=== PATIENT | male | born 1950 | race Caucasian/White ===

== ENCOUNTER 2018-08-21 09:06 | Emergency (ER) | payer MEDICARE, OTHER, SELFPAY ==
[2018-08-21 09:14] VITALS: BP 160/75; PULSE 87; RESP 15; TEMP 36.9; O2SAT 97; BMI 27.9
--- NOTE | 2018-08-21 09:55 | ED.GIBLEED ---
HPI - GI Bleed General Chief complaint: GI Bleed Stated complaint: BLEEDING AFTER COLONOSCOPY Time Seen by Provider: 08/21/18 09:10 Source: patient Mode of arrival: ambulatory Limitations: no limitations History of Present Illness HPI Narrative: 68-year-old male, nonsmoker with history of hypertension and GERD presents with some mild rectal bleeding this morning in the absence pain or other symptoms. He had a bowel movement this morning and noted a very small amount what looked like clotted blood and on a subsequent bowel movement noted the toilet water became red but not obviously, completely bloody. He denies any pain and is not dizzy nor weak or lightheaded. He had a colonoscopy with GI at [facility] on Saturday and had a polyp removed, pathology noted it to be benign. He takes no blood thinners. He called the GI office and was directed to the emergency department Onset (ago): hour(s) Pain Consistency: now resolved Severity: mild Relieving factors: none Exacerbating factors: none Associated symptoms: denies other symptoms Related Data Home Medications Medication Instructions Recorded Confirmed atorvastatin [Lipitor] 40 mg PO BEDTIME 08/21/18 08/21/18 hydrochlorothiazide 25 mg PO DAILY 08/21/18 08/21/18 lisinopril 40 mg PO DAILY 08/21/18 08/21/18 ranitidine HCl [Zantac] 150 mg PO DAILY 08/21/18 08/21/18 Allergies Allergy/AdvReac Type Severity Reaction Status Date / Time morphine Allergy Verified 08/21/18 09:14 Review of Systems Constitutional Denies chills, Denies fever(s), Denies lethargy and Denies weakness Eyes Denies change in vision, Denies eye discharge, Denies irritation and Denies loss of vision ENT Ears, Nose, Mouth, and Throat: Denies change in voice, Denies neck pain and Denies sore throat Cardiovascular Denies chest pain, Denies irregular heart rhythm, Denies lightheadedness, Denies palpitations, Denies dyspnea, Denies dyspnea on exertion and Denies orthopnea Respiratory Denies cough, Denies dyspnea, Denies dyspnea on exertion and Denies wheezing Gastrointestinal Gastrointestinal: Denies abdominal pain, Reports hematochezia, Denies change in bowel habits, Denies diarrhea, Denies nausea and Denies vomiting Genitourinary Denies hematuria, Denies flank pain, Denies urinary incontinence and Denies urinary urgency Musculoskeletal Denies neck pain Integumentary/Breasts Denies pruritus, Denies erythema, Denies rash and Denies wounds Neurologic Denies confusion, Denies loss of vision and Denies weakness Psychiatric Denies anxiety, Denies confusion, Denies depression, Denies homicidal ideation and Denies suicidal ideation Endocrine Denies palpitations Hematologic/Lymphatic Denies easy bruising Allergic/Immunologic Denies wheezing PFSH Surgical History History of carpal tunnel repair History of tonsillectomy Status post hernia repair Status post hernia repair Status post knee surgery Family History Brother Age: 75 Cancer Brother Age: 66 Kidney transplanted Father Heart disease Grandfather Peritonitis Grandmother Stroke Mother Stroke Social History Smoking Status: Former smoker Exam Narrative Exam Narrative: GEN: AOx3 and in mild distress EYES: Pupils are equal, round, and reactive to light and accommodation. Extraoccular muscles are intact bilaterally. There is no subconjunctival hemorrhage or exudate. CHEST: Lungs are clear to auscultation bilaterally and free of wheezes, rales, or rhonchi. Heart rate is regular rhythm, there are no murmurs, clicks, rubs, or gallops. There is no chest wall tenderness. ABD: Abdomen is soft and nontender. There is no guarding or rebound. Bowel sounds are normal in all 4 quadrants. There is no mass or organomegaly. RECTAL: no bleeding. No fissure. External hemorrhoid not bleeding. No pain EXT: Full painless ROM of all extremities with no loss of sensation or strength. SKIN: Warm, pink, and dry. No erythema or rash Initial Vital Signs Initial Vital Signs: Vital Signs Temperature 98.5 F 08/21/18 09:14 Pulse Rate 87 08/21/18 09:14 Respiratory Rate 15 08/21/18 09:14 Blood Pressure 160/75 H 08/21/18 09:14 Pulse Oximetry 97 08/21/18 09:14 Course Orders Ordered: ED Orders 08/21/18 10:55 Hemoglobin and Hematocrit Stat Consultations Consultation #1: call placed to Dr. Dunn, he is not in the office but his partner called back. His only recommendation is to obtain H&H and provided that is normal patient may go home after our discussion of patient's history and exam. Time: 09:58 Vital Signs - 8 hr 08/21/18 11:35 Pulse Rate 80 Respiratory Rate 15 Blood Pressure [Right Arm] 143/68 H Pulse Oximetry 96 MDM - GI Bleed Differential Diagnosis Likely hemorrhoids, Lower gastrointestinal hemorrhage, hematochezia and anal fissure Medical Records Attestation: I reviewed the patient's medical records. Lab Data Attestation: I reviewed the patient's lab results. Result diagrams: 08/21/18 10:55 Lab Results 08/21/18 Range/Units 10:55 Hgb 13.9 (13.5-17.5) g/dL Hct 40.8 L (41-53) % MDM Narrative Medical decision making narrative: Multiple etiologies for patient's symptoms considered including: [Surgical complication, diverticular bleed, perforation, hemorrhoidal bleed, versus other] Patient's symptoms improved or duration of stay with above-stated therapies. Findings and discharge diagnosis discussed with patient/family followed by verbalization of understanding Return precautions discussed with patient/family whom verbalize understanding. Discharge Plan Departure Patient Disposition: Home Clinical Impression: Rectal bleed Discharge Date/Time: 08/21/18 12:02 Interventions: ED Discharge Assessment Last Done: 08/21/18 12:02 Instructions: DI for Rectal Bleeding Activity Restrictions/Additional Instructions: 1. Drink plenty of fluids with frequent small sips. 2. For the next 24 hours a clear liquid diet is advised. After that please employ a brat diet which would include bananas, rice, apples, toast. 3. Please take medications as directed. 4. Please follow-up with your doctor in the next 1-2 days. Call the office for an appointment. 5. Please return to the emergency Department for any worsening or persistent symptoms, such as increasing pain or fever. Prescriptions: No Action atorvastatin [Lipitor] 40 mg tablet 40 mg PO BEDTIME RF: 0 hydrochlorothiazide 25 mg tablet 25 mg PO DAILY RF: 0 lisinopril 40 mg tablet 40 mg PO DAILY RF: 0 ranitidine HCl [Zantac] 150 mg Tablet 150 mg PO DAILY RF: 0 Referrals: Severo Wahl MD [Primary Care Provider] -
[2018-08-21 11:04] LABS: Hematocrit 40.8 % (41-53); Hemoglobin 13.9 g/dL (13.5-17.5)
[2018-08-21 11:35] VITALS: BP 143/68; PULSE 80; RESP 15; O2SAT 96
== END 2018-08-21 12:02 | disposition home or self-care (01) ==
PROVIDERS: Emergency Provider Emergency Medicine; PCP Family Medicine
DX: K62.5 Hemorrhage of anus and rectum (principal)
CPT/HCPCS: 36415; 85014; 85018; 99282; 99283

== ENCOUNTER → 2018-08-27 09:02 | Outpatient (CLI) | payer MEDICARE, OTHER, SELFPAY ==
[2018-08-27 09:55] LABS: Hematocrit 36.5 % (41-53); Hemoglobin 12.9 g/dL (13.5-17.5)
== END ==
PROVIDERS: PCP Family Medicine; Visit Provider Family Medicine
DX: K62.5 Hemorrhage of anus and rectum (principal)
CPT/HCPCS: 36415; 85014; 85018

== ENCOUNTER → 2019-01-06 06:59 | Outpatient (CLI) | payer MEDICARE, OTHER, SELFPAY ==
[2019-01-06 08:11] LABS: Add Manual Diff / Slide Review NO; Basophils Absolute Auto 0 /uL (0-100); Basophils Percent Auto 0.6 % (0-2); Eosinophils Absolute Auto 100 /uL (0-450); Hematocrit 41.5 % (41-53); Lymphocytes Absolute Auto 1300 /uL (1100-4500); Lymphocytes Percent Auto 23.3 % (25-40); Mean Corpuscular HGB Conc 33.7 % (30-36); Mean Corpuscular Hemoglobin 30.8 PG (26-34); Mean Corpuscular Volume 91.4 fL (80-100); Monocytes Absolute Auto 600 /uL (0-900); Monocytes Percent Auto 11.3 % (3-14); Neutrophils Absolute Auto 3500 /uL (1500-7000); Neutrophils Percent Auto 62.8 % (50-75); Platelet Count 275 X10^3/uL (150-400); Red Blood Cell Count 4.54 X10^6/uL (4.5-5.9); Red Cell Distribution Width 13.2 % (11.6-14.8); White Blood Cell Count 5.7 X10^3/uL (4.5-11.0)
[2019-01-06 08:57] LABS: Alanine Aminotransferase 26 IU/L (21-72); Albumin 4.6 g/dL (3.5-5.0); Albumin Globulin Ratio 1.6 (1.0-2.8); Alkaline Phosphatase 76 U/L (38-126); Aspartate Aminotransferase 30 IU/L (17-59); BUN Creatinine Ratio 18.2 (6-22); Bilirubin Total 0.6 mg/dL (0.2-1.3); Blood Urea Nitrogen 20 mg/dL (9-20); Calcium 9.9 mg/dL (8.4-10.2); Carbon Dioxide 25 mmol/L (22-32); Chloride 102 mmol/L (98-107); Cholesterol 185 mg/dL (140-199); Estimated Glomerular Filt Rate > 60.0 mL/min (>60); Globulin 2.8 g/dL (1.7-4.1); Glucose 121 mg/dL (80-110); HDL Cholesterol 64 mg/dL (40-60); HEMOLYSIS < 15 (0-50); LDL Cholesterol Calculated 110 mg/dL (<100); Potassium 4.4 mmol/L (3.4-5.1); Sodium 138 mmol/L (137-145); Total Protein 7.4 g/dL (6.3-8.2); Triglycerides 55 mg/dL (35-150)
[2019-01-06 09:00] LABS: TSH w/ Reflex to FT4 1.37 uIU/mL (0.47-4.68)
[2019-01-06 09:06] LABS: Prostate Specific Antigen Scrn 1.92 ng/mL (0.1-4.0)
[2019-01-06 15:38] LABS: Hemoglobin A1C% w Est Avg Glu 5.5 % (4.0-6.0)
== END ==
PROVIDERS: PCP Family Medicine; Visit Provider Family Medicine
DX: Z12.5 Encounter for screening for malignant neoplasm of prostate (principal); E78.00 Pure hypercholesterolemia, unspecified; I10 Essential (primary) hypertension; R73.9 Hyperglycemia, unspecified
CPT/HCPCS: 36415; 80053; 80061; 83036; 84443; 85025; G0103

== ENCOUNTER → 2019-05-25 08:01 | Outpatient (CLI) | payer MEDICARE, OTHER, SELFPAY ==
--- NOTE | 2019-05-25 08:05 | DI.RAD.S_ITS ---
PROCEDURE: XR SHOULDER LT MIN 2V INDICATIONS: left shoulder pain TECHNIQUE: 4 views of the shoulder were acquired. COMPARISON: None. FINDINGS: Bones: No acute fractures or dislocations. There are degenerative changes of the left acromioclavicular joint. Coracoclavicular and acromioclavicular intervals are maintained. No suspicious bony lesions. Visualized ribs appear intact. Soft tissues: No suspicious soft tissue calcifications. IMPRESSION: Left acromioclavicular degenerative change. No acute osseous abnormalities. Dictated by: Dylan Umaña M.D. on 05/25/2019 at 9:09 Approved by: Dylan Umaña M.D. on 05/25/2019 at 9:10
== END ==
PROVIDERS: PCP Family Medicine; Visit Provider Family Medicine
DX: M25.512 Pain in left shoulder (principal)
CPT/HCPCS: 73030

== ENCOUNTER → 2020-07-08 08:51 | Outpatient (CLI) | payer MEDICARE, SELFPAY ==
--- NOTE | 2020-07-08 08:56 | DI.RAD.S_ITS ---
PROCEDURE: XR CHEST 2V INDICATIONS: cough TECHNIQUE: 2 views of the chest were acquired. COMPARISON: None. FINDINGS: Surgical changes and devices: None. Lungs and pleura: Lungs are clear. No pleural effusions or pneumothorax. Mediastinum: Mediastinal contours are normal. Heart size is normal. Bones and chest wall: No suspicious bony abnormalities. Soft tissues appear unremarkable. IMPRESSION: No acute cardiopulmonary disease. Dictated by: Julian Borges M.D. on 07/08/2020 at 13:22 Approved by: Julian Borges M.D. on 07/08/2020 at 13:22
[2020-07-08 10:03] LABS: Add Manual Diff / Slide Review NO; Basophils Absolute Auto 0 /uL (0-100); Basophils Percent Auto 0.5 % (0-2); Eosinophils Absolute Auto 100 /uL (0-450); Hematocrit 41.5 % (41-53); Hemoglobin 14.1 g/dL (13.5-17.5); Lymphocytes Absolute Auto 1100 /uL (1100-4500); Lymphocytes Percent Auto 17.7 % (25-40); Mean Corpuscular HGB Conc 33.9 % (30-36); Mean Corpuscular Hemoglobin 31.7 PG (26-34); Mean Corpuscular Volume 93.4 fL (80-100); Monocytes Absolute Auto 700 /uL (0-900); Monocytes Percent Auto 11.9 % (3-14); Neutrophils Absolute Auto 4300 /uL (1500-7000); Neutrophils Percent Auto 68.9 % (50-75); Platelet Count 236 X10^3/uL (150-400); Red Blood Cell Count 4.45 X10^6/uL (4.5-5.9); White Blood Cell Count 6.3 X10^3/uL (4.5-11.0)
[2020-07-08 10:30] LABS: Alanine Aminotransferase 25 IU/L (<50); Albumin 4.7 g/dL (3.5-5.0); Albumin Globulin Ratio 1.4 (1.0-2.8); Alkaline Phosphatase 65 U/L (38-126); Aspartate Aminotransferase 29 IU/L (17-59); BUN Creatinine Ratio 19.8 (6-22); Bilirubin Total 0.8 mg/dL (0.2-1.3); Blood Urea Nitrogen 23 mg/dL (9-20); Carbon Dioxide 27 mmol/L (22-32); Chloride 100 mmol/L (98-107); Cholesterol 203 mg/dL (140-199); Estimated Glomerular Filt Rate > 60.0 mL/min (>60); Globulin 3.4 g/dL (1.7-4.1); Glucose 119 mg/dL (80-110); HDL Cholesterol 68 mg/dL (40-60); HEMOLYSIS < 15 (0-50); LDL Cholesterol Calculated 117 mg/dL (<100); Potassium 4.3 mmol/L (3.4-5.1); Sodium 134 mmol/L (137-145); Total Protein 8.1 g/dL (6.3-8.2); Triglycerides 90 mg/dL (35-150)
== END ==
PROVIDERS: PCP Family Medicine; Referring Provider Family Medicine; Visit Provider Family Medicine
DX: E78.00 Pure hypercholesterolemia, unspecified (principal); I10 Essential (primary) hypertension; K21.9 Gastro-esophageal reflux disease without esophagitis; R05 Cough
CPT/HCPCS: 36415; 71046; 80053; 80061; 84443; 85025

== ENCOUNTER → 2020-08-30 07:45 | Outpatient (CLI) | payer MEDICARE, SELFPAY ==
[2020-08-30] MEDS: COVID-19 VACC #1, MRNA(MOD) 100 MCG/0.5 ML VIAL IM (07:51)
== END ==
PROVIDERS: PCP Family Medicine; Visit Provider Internal Medicine
DX: Z23 Encounter for immunization (principal)
CPT/HCPCS: 0011A; 91301

== ENCOUNTER → 2020-09-27 07:53 | Outpatient (CLI) | payer MEDICARE, SELFPAY ==
[2020-09-27] MEDS: COVID-19 VACC #2, MRNA(MOD) 100 MCG/0.5 ML VIAL IM (08:11)
== END ==
PROVIDERS: PCP Family Medicine; Visit Provider Internal Medicine
DX: Z23 Encounter for immunization (principal)
CPT/HCPCS: 0012A; 91301

== ENCOUNTER → 2021-07-05 07:18 | Outpatient (CLI) | payer MEDICARE, SELFPAY ==
--- NOTE | 2021-07-05 07:21 | DI.RAD.S_ITS ---
PROCEDURE: XR FOOT LT MIN 3V INDICATIONS: L heel pain, s/p injury 1 mo ago TECHNIQUE: 3 views of the foot were acquired. COMPARISON: None. FINDINGS: Bones: There is a small plantar calcaneal enthesophyte that appears to be fractured at its base. Mild overlying soft tissue swelling. Small retrocalcaneal enthesophyte. Remainder of the visualized osseous structures appear intact. Mild background degenerative changes of the interphalangeal joints of the left foot as well as the 1st metatarsophalangeal joint. Soft tissues: No tibiotalar joint effusion. Achilles tendon appears normal. IMPRESSION: Small plantar calcaneal enthesophyte at appears to be fracture at its base. Recommend correlating with physical examination for point tenderness in this region. Otherwise, no other fracture or dislocation identified. Dictated by: Dylan Umaña M.D. on 07/05/2021 at 7:35 Approved by: Dylan Umaña M.D. on 07/05/2021 at 7:38
== END ==
PROVIDERS: PCP Family Medicine; Referring Provider Physician Assistant; Visit Provider Physician Assistant
DX: M79.672 Pain in left foot (principal); M77.32 Calcaneal spur, left foot; M79.89 Other specified soft tissue disorders
CPT/HCPCS: 73630

== ENCOUNTER → 2021-10-13 10:18 | Outpatient (CLI) | payer MEDICARE, SELFPAY ==
[2021-10-13 19:00] LABS: COVID-19 CEPHEID PCR (VTM/NP) Negative (Negative)
== END ==
PROVIDERS: PCP Family Medicine; Visit Provider Nurse Practitioner Family
DX: Z20.822 Contact with and (suspected) exposure to COVID-19 (principal)
CPT/HCPCS: C9803; U0003; U0005

== ENCOUNTER → 2022-02-15 06:49 | Outpatient (CLI) | payer MEDICARE, SELFPAY ==
[2022-02-15 09:01] LABS: Add Manual Diff / Slide Review NO; Basophils Absolute Auto 0 /uL (0-100); Basophils Percent Auto 0.8 % (0-2); Eosinophils Absolute Auto 100 /uL (0-450); Eosinophils Percent Auto 2.8 % (2-4); Hematocrit 40.8 % (41-53); Hemoglobin 14.2 g/dL (13.5-17.5); Lymphocytes Absolute Auto 1000 /uL (1100-4500); Lymphocytes Percent Auto 22.2 % (25-40); Mean Corpuscular HGB Conc 34.7 % (30-36); Mean Corpuscular Volume 92.3 fL (80-100); Monocytes Absolute Auto 600 /uL (0-900); Monocytes Percent Auto 12.8 % (3-14); Neutrophils Absolute Auto 2800 /uL (1500-7000); Neutrophils Percent Auto 61.4 % (50-75); Platelet Count 212 X10^3/uL (150-400); Red Blood Cell Count 4.42 X10^6/uL (4.5-5.9); Red Cell Distribution Width 12.9 % (11.6-14.8); White Blood Cell Count 4.5 X10^3/uL (4.5-11.0)
[2022-02-15 09:35] LABS: Alanine Aminotransferase 19 IU/L (<50); Albumin Globulin Ratio 1.7 (1.0-2.8); Alkaline Phosphatase 77 U/L (38-126); Aspartate Aminotransferase 32 IU/L (17-59); BUN Creatinine Ratio 15.4 (6-22); Bilirubin Total 0.7 mg/dL (0.2-1.3); Blood Urea Nitrogen 16 mg/dL (9-20); Calcium 9.2 mg/dL (8.4-10.2); Carbon Dioxide 26 mmol/L (22-32); Chloride 98 mmol/L (98-107); Cholesterol 206 mg/dL (140-199); Estimated Glomerular Filt Rate > 60 mL/min (>60); Globulin 2.9 g/dL (1.7-4.1); Glucose 114 mg/dL (80-110); HDL Cholesterol 65 mg/dL (40-60); HEMOLYSIS < 15 (0-50); LDL Cholesterol Calculated 119 mg/dL (<100); Potassium 4.2 mmol/L (3.4-5.1); Sodium 133 mmol/L (137-145); Total Protein 7.9 g/dL (6.3-8.2); Triglycerides 111 mg/dL (35-150)
[2022-02-15 10:01] LABS: Prostate Specific Antigen Scrn 1.75 ng/mL (0.1-4.0)
[2022-02-15 10:05] LABS: TSH w/ Reflex to FT4 1.86 uIU/mL (0.47-4.68)
== END ==
PROVIDERS: PCP Family Medicine; Referring Provider Family Medicine; Visit Provider Family Medicine
DX: E78.00 Pure hypercholesterolemia, unspecified (principal); Z12.5 Encounter for screening for malignant neoplasm of prostate; I10 Essential (primary) hypertension; E78.1 Pure hyperglyceridemia
CPT/HCPCS: 36415; 80053; 80061; 84443; 85025; G0103

== ENCOUNTER 2022-03-30 12:29 | Emergency (ER) | payer MEDICARE, SELFPAY ==
[2022-03-30 12:50] VITALS: BP 187/86; PULSE 73; RESP 18; TEMP 36.3; O2SAT 97; BMI 27.1
[2022-03-30 13:13] VITALS: O2SAT 100
[2022-03-30 13:14] VITALS: BP 173/93; PULSE 84; O2SAT 97
--- NOTE | 2022-03-30 13:17 | PC.NURSE ---
Pt reports worsening, pulsing, back pain that radiates to his left knee that began after lifting a box of tiles on 03/11/22. Reports a history of 3 back surgeries with his most recent one in November; Pt reports an L2-L3 laminectomy.
--- NOTE | 2022-03-30 15:19 | ED_ITS ---
HPI - Back Pain/Injury <Garland Curtis PA-C - Last Filed: 03/30/22 15:41> General Chief Complaint: Back Pain/Injury Stated Complaint: Hurt Back, Lower Back Time Seen by Provider: 03/30/22 12:42 History of Present Illness HPI Narrative: Patient is a 71-year-old male presents to the emergency room today with complaint chronic back pain. Patient states the pain started about of this month. Has been seeing and last saw him and of this month where he received a steroid injection. Also admits to having back surgery in November of this year. Surgery was a laminectomy to the L2-L3. Has been taken nonsteroidal anti-inflammatories and some hydrocodone that he had left over for his pain. Has an appointment scheduled with his surgeon on April 05. Describes the pain as a dull ache to the lower mid back that radiates to the left side in the sciatic region. Denies any recent trauma. Denies any loss of bowel bladder function. Related Data Home Medications Medication Instructions Recorded Confirmed famotidine-Ca carb-mag hydrox 10 1 tab PO BEDTIME PRN 05/06/19 03/15/22 mg-800 mg-165 mg chewable tablet (Pepcid Complete) Previous Rx's Medication Instructions Recorded lisinopril 40 mg tablet 40 mg PO DAILY #90 tabs 08/07/21 atorvastatin 40 mg tablet 40 mg PO BEDTIME #90 tabs 02/08/22 hydrochlorothiazide 25 mg tablet 25 mg PO DAILY #90 tabs 02/08/22 montelukast 10 mg tablet 10 mg PO DAILY #90 tabs 02/08/22 (Singulair) methocarbamol 750 mg tablet 750 mg PO TID #10 tabs 03/30/22 Allergies Allergy/AdvReac Type Severity Reaction Status Date / Time morphine Allergy Verified 03/15/22 10:57 Review of Systems <Garland Curtis PA-C - Last Filed: 03/30/22 15:41> Review of Systems Narrative: R.O.S.: General: No fever, chills or fatigue. Cardiovascular: No chest pain or palpitations Respiratory: No S.O.B. HEENT: No congestion, ear pain, rhinorrhea, sore throat or tinnitus Gastrointestinal: No nausea or vomiting Skin: No rash or associated abnormalities Neurological: Awake, alert and in not apparent distress. No Headaches, changes in vision or other related neurological concerns. Musculoskeletal: Low back pain Patient History <Garland Curtis PA-C - Last Filed: 03/30/22 15:41> Surgical History History of carpal tunnel repair History of tonsillectomy Status post hernia repair Status post hernia repair Status post knee surgery Family History Brother Age: 79 Cancer Brother Age: 70 Kidney transplanted Father Heart disease Grandfather Peritonitis Grandmother Stroke Mother Stroke Social History marital status: Smoking Status: Former smoker alcohol intake: current substance use type: does not use Smoking Status: Former smoker Exam <Garland Curtis PA-C - Last Filed: 03/30/22 15:41> Narrative Exam Narrative: Physical Exam: ? General: normal appearance, well developed, well nourished, alert, and awake. Not in acute distress. ? Head: Normocephalic, no lesions. Chest: Lungs CTAB, no rales, rhonchi or wheezes. ?? Heart: RRR, no murmurs, rubs or gallops. Eyes: PERRLA, EOM's full, conjunctivae clear. ? Neuro: Physiological, no localizing findings, CN3-12 intact. ?? Extremities: Warm, well perfused, FROM, no deformities, no edema. ?? Skin: Normal, no rashes, no lesions noted. ?? PSYCHIATRIC: The mood is good, no blunted affect. Speech is clear. Thought process is linear, thought content is appropriate. The voice is without si gnificant inflection. Musculoskeletal: Patient has bilateral paraspinal tenderness at the lower lumbar spinal area. Patient able to tandem walk without difficulty. Also able to tiptoe walk and heel walk without difficulty. Exam is negative for straight leg raises bilaterally. Initial Vital Signs Initial Vital Signs: Vital Signs Temperature 97.3 F L 03/30/22 12:50 Pulse Rate 73 03/30/22 12:50 Respiratory Rate 18 03/30/22 12:50 Blood Pressure 187/86 H 03/30/22 12:50 Pulse Oximetry 97 03/30/22 12:50 Oxygen Delivery Method 03/30/22 12:50 <DO Judith Pedro Last Filed: 03/31/22 08:53> Initial Vital Signs Initial Vital Signs: Vital Signs Temperature 97.3 F L 03/30/22 12:50 Pulse Rate 73 03/30/22 12:50 Respiratory Rate 18 03/30/22 12:50 Blood Pressure 187/86 H 03/30/22 12:50 Pulse Oximetry 97 03/30/22 12:50 Oxygen Delivery Method 03/30/22 12:50 Course <Garland Curtis PA-C - Last Filed: 03/30/22 15:41> Orders Ordered: Discontinued Medications Ketorolac Tromethamine (Ketorolac 30 Mg/Ml Vial) 15 mg IM NOW ONE Stop: 03/30/22 15:20 Last Admin: 03/30/22 15:26 Dose: 15 mg Documented By: CALVIN Vital Signs Vital signs: Vital Signs - 8 hr 03/30/22 13:13 03/30/22 13:14 03/30/22 13:14 Pulse Rate 84 Blood Pressure 173/93 H Pulse Oximetry 100 97 <Ansley Friedman DO - Last Filed: 03/31/22 08:53> Orders Ordered: Discontinued Medications Ketorolac Tromethamine (Ketorolac 30 Mg/Ml Vial) 15 mg IM NOW ONE Stop: 03/30/22 15:20 Last Admin: 03/30/22 15:26 Dose: 15 mg Documented By: CALVIN Vital Signs Vital signs: Vital Signs - 8 hr 03/30/22 13:13 03/30/22 13:14 03/30/22 13:14 Pulse Rate 84 Blood Pressure 173/93 H Pulse Oximetry 100 97 MDM - Back Pain/Injury <Garland Curtis PA-C - Last Filed: 03/30/22 15:41> MDM Narrative Medical decision making narrative: Patient is a 71-year-old male who presents to the emergency room today with complaint of chronic back pain. Patient states he has this back pain started on the 8th of this month. Also admits to having surgery to his back in November of this year. Patient states he contacted his PCPs office in regards to his back pain and was referred to the emergency room by the nurse in his PCPs office. Scheduled to see his surgeon on April 05 and his only concern today is with pain. Patient states he has not taken any nonsteroidal anti-inflammatories in the last 8 hours. Patient also denies any kidney function concerns. 50 mg of IM Toradol was administered at this visit Robaxin at 750 mg was ordered 3 times a day and 10 Tabs were ordered. No diagnostic for x-rays or CTs were ordered this visit because patient has no complaint of any trauma or changes in his condition other than chronic low back pain. Patient advised to follow-up with his PCP for any known urgent emergent concerns and advised to return to the emergency room or urgent care for any emergent or urgent concerns. Patient agrees with this plan Discharge Plan Departure Patient Disposition: Home Clinical Impression: Chronic low back pain Instructions: DI for Low Back Pain Activity Restrictions/Additional Instructions: *You have been diagnosed with [chronic low back pain. You have been given a strong nostrils steroid injection medicine in the emergency room today I suggest to refrain drain from taking any OTC so anti-inflammatories for the next 8 hours. I have also ordered a muscle relaxer for you which has been sent to your pharmacy. Please take the medications as ordered follow-up with your primary care provider for any non urgent emergent concerns. Also suggest you continue to follow-up with your appointment with your surgeon in regards to chronic back pain. Also please return to the emergency room procedure have any emergent concerns.] *What to do: *Please continue to take your regular medications as directed. [x] New medication prescriptions sent to your pharmacy: [ ] [ ] New medication written as a paper prescription [ ] No new medications given *Please follow up with your primary care provider in 2-3 days, call for an appointment. Let them know you were seen in the Emergency Department and that we ask that you be seen in follow up. We will electronically transmit a record of today's note if your PCP is in our system *If you do not have a primary care provider please contact the [facility] Resource line at [phone]. They will ask some questions about your medical history and help get you set up with a doctor in the community. *Return to Emergency Department if you should have any new, worsening or concerning symptoms, such as [fever greater than 101 F, shaking chills, worsen ing pain, persistent vomiting or other bothersome symptoms] Prescriptions: New methocarbamol 750 mg tablet 750 mg PO TID Qty: 10 0RF No Action montelukast [Singulair] 10 mg tablet 10 mg PO DAILY Qty: 90 3RF hydrochlorothiazide 25 mg tablet 25 mg PO DAILY Qty: 90 3RF atorvastatin 40 mg tablet 40 mg PO BEDTIME Qty: 90 3RF Pepcid Complete 10-800-165 mg tablet,chewable 1 tab PO BEDTIME PRN lisinopril 40 mg tablet 40 mg PO DAILY Qty: 90 3RF Referrals: Severo Wahl MD [Primary Care Provider] - Visit Report Forms: Patient Portal/API <Ansley Friedman DO - Last Filed: 03/31/22 08:53> Cosign ED Attending Angelaature Attestation: I was immediately available in the department for consultation. Documentation has been reviewed. Patient case was discussed with myself. Reviewed no acute neurologic changes, no fevers or changes concerning for infection at this time. Agree with current plan.
[2022-03-30] MEDS: KETOROLAC 30 MG/ML VIAL 15 MG IM (15:26)
[2022-03-30 15:54] VITALS: BP 179/87; PULSE 72; RESP 16; O2SAT 99
== END 2022-03-30 15:54 | disposition home or self-care (01) ==
PROVIDERS: Emergency Provider Physician Assistant; PCP Family Medicine
DX: M54.50 Low back pain, unspecified (principal)
CPT/HCPCS: 96372; 99283; J1885

== ENCOUNTER → 2022-04-02 15:45 | Outpatient (CLI) | payer MEDICARE, SELFPAY ==
--- NOTE | 2022-04-02 15:47 | DI.RAD.S_ITS ---
PROCEDURE: XR LUMBAR SPINE 2-3V INDICATIONS: back pain TECHNIQUE: 3 views of the lumbar spine were acquired. COMPARISON: [facility], , L-SPINE 6V INCLUDING BENDING, 08/06/2012, 13:12. FINDINGS: Bones: 5 [id number] vertebrae are present. There is normal bony alignment. No vertebral body compression fractures. No suspicious bony lesions. There is diffuse intervertebral disc space narrowing, endplate sclerosis, osteophytosis and facet sclerosis. Soft tissues: Overlying bowel gas pattern is normal there is increased atheromatous calcifications of the aorta when compared with the 2013 study. IMPRESSION: Moderate degenerative change. Increased aortic atherosclerosis when compared with the study dated August 06, 2012. No new compression deformities. Dictated by: Mindi Nino M.D. on 04/02/2022 at 17:42 Approved by: Mindi Nino M.D. on 04/02/2022 at 17:44
--- NOTE | 2022-04-02 15:47 | DI.RAD.S_ITS ---
PROCEDURE: XR HIP W PEL IF DONE LT 2V INDICATIONS: hip and back pain TECHNIQUE: AP pelvis with lateral view(s) of the left hip(s). COMPARISON: None. FINDINGS: Bones: No fractures or dislocations. Pelvic ring appears intact. No suspicious bony lesions. There is mild bilateral hip joint space narrowing. Soft tissues: The visualized bowel gas pattern is normal. No suspicious soft tissue calcifications. IMPRESSION: Mild bilateral hip osteoarthritis. Dictated by: Mindi Nino M.D. on 04/02/2022 at 17:44 Approved by: Mindi Nino M.D. on 04/02/2022 at 17:44
== END ==
PROVIDERS: PCP Family Medicine; Referring Provider Family Medicine; Visit Provider Family Medicine
DX: M54.9 Dorsalgia, unspecified (principal); I70.0 Atherosclerosis of aorta; M16.0 Bilateral primary osteoarthritis of hip; M25.552 Pain in left hip; M25.551 Pain in right hip
CPT/HCPCS: 72100; 73502

== ENCOUNTER → 2023-05-06 08:52 | Outpatient (CLI) | payer MEDICARE, SELFPAY ==
[2023-05-06 09:53] LABS: Add Manual Diff / Slide Review NO; Basophils Absolute Auto 0 /uL (0-100); Basophils Percent Auto 0.5 % (0-2); Eosinophils Absolute Auto 0 /uL (0-450); Eosinophils Percent Auto 0.7 % (2-4); Hemoglobin 14.4 g/dL (13.5-17.5); Lymphocytes Absolute Auto 1000 /uL (1100-4500); Lymphocytes Percent Auto 15.5 % (25-40); Mean Corpuscular Volume 91.3 fL (80-100); Monocytes Absolute Auto 800 /uL (0-900); Monocytes Percent Auto 12.9 % (3-14); Neutrophils Absolute Auto 4400 /uL (1500-7000); Neutrophils Percent Auto 70.4 % (50-75); Platelet Count 233 X10^3/uL (150-400); Red Blood Cell Count 4.49 X10^6/uL (4.5-5.9); Red Cell Distribution Width 12.3 % (11.6-14.8); White Blood Cell Count 6.3 X10^3/uL (4.5-11.0)
[2023-05-06 10:19] LABS: Alanine Aminotransferase 28 IU/L (<50); Albumin 4.8 g/dL (3.5-5.0); Albumin Globulin Ratio 1.4 (1.0-2.8); Alkaline Phosphatase 70 U/L (38-126); Aspartate Aminotransferase 33 IU/L (17-59); BUN Creatinine Ratio 17.2 (6-22); Bilirubin Total 0.7 mg/dL (0.2-1.3); Blood Urea Nitrogen 16 mg/dL (9-20); Calcium 9.9 mg/dL (8.4-10.2); Carbon Dioxide 28 mmol/L (22-32); Chloride 95 mmol/L (98-107); Cholesterol 201 mg/dL (140-199); Estimated Glomerular Filt Rate > 60 mL/min (>60); Globulin 3.5 g/dL (1.7-4.1); Glucose 122 mg/dL (80-110); HDL Cholesterol 59 mg/dL (40-60); HEMOLYSIS < 15 (0-50); LDL Cholesterol Calculated 113 mg/dL (<100); Potassium 3.8 mmol/L (3.4-5.1); Sodium 131 mmol/L (137-145); Total Protein 8.3 g/dL (6.3-8.2); Triglycerides 143 mg/dL (35-150)
[2023-05-06 10:48] LABS: TSH w/ Reflex to FT4 1.62 uIU/mL (0.47-4.68)
== END ==
PROVIDERS: PCP Family Medicine; Referring Provider Family Medicine; Visit Provider Family Medicine
DX: E78.00 Pure hypercholesterolemia, unspecified (principal); Z12.5 Encounter for screening for malignant neoplasm of prostate; E78.1 Pure hyperglyceridemia; I10 Essential (primary) hypertension
CPT/HCPCS: 36415; 80053; 80061; 84443; 85025; G0103

== ENCOUNTER → 2024-02-07 15:35 | Outpatient (CLI) | payer MEDICARE, SELFPAY ==
--- NOTE | 2024-02-07 15:37 | DI.US.S_ITS ---
PROCEDURE: US CAROTID DOPPLER BI INDICATIONS: Dizziness; Hx of HTN and Hyperlipidemia TECHNIQUE: Color and pulse Doppler interrogation was performed of both carotid systems, with image documentation and velocity measurements. COMPARISON: None. FINDINGS: Stenosis calculations are based on SRU (Society of Radiologists in Ultrasound) criteria. Right side: Brachial blood pressure: 145/81 mm Hg. Common carotid artery peak systolic velocity: 65 cm/sec. Internal carotid artery peak systolic velocity: 76 cm/sec. Internal carotid artery end diastolic velocity: 29 cm/sec. External carotid artery peak systolic velocity: 100 cm/sec. ICA/CCA peak systolic ratio: 1.2 . Drummond scale imaging description: Moderate Percent internal carotid artery stenosis: Less than 50 . Vertebral artery: Flow direction is antegrade. Left side: Brachial blood pressure: 146/74 mm Hg. Common carotid artery peak systolic velocity: 77 cm/sec. Internal carotid artery peak systolic velocity: 90 cm/sec. Internal carotid artery end diastolic velocity: 37 cm/sec. External carotid artery peak systolic velocity: 88 cm/sec. ICA/CCA peak systolic ratio: 1.2 . Drummond scale imaging description: Moderate Percent internal carotid artery stenosis: Less than 50 . Vertebral artery: Flow direction is antegrade. IMPRESSION: Moderate atherosclerotic plaque with less than 50 percent proximal ICA stenosis bilaterally. Approved by: Gucci Jorgensen M.D. on 02/07/2024 at 17:31
== END ==
PROVIDERS: PCP Family Medicine; Referring Provider Physician Assistant; Visit Provider Physician Assistant
DX: I65.23 Occlusion and stenosis of bilateral carotid arteries (principal); R42 Dizziness and giddiness; I10 Essential (primary) hypertension; E78.00 Pure hypercholesterolemia, unspecified
CPT/HCPCS: 93880

== ENCOUNTER → 2024-06-18 08:18 | Outpatient (CLI) | payer MEDICARE, SELFPAY ==
[2024-06-18 09:02] LABS: Add Manual Diff / Slide Review NO; Basophils Absolute Auto 100 /uL (0-100); Eosinophils Absolute Auto 100 /uL (0-450); Eosinophils Percent Auto 1.9 % (2-4); Hematocrit 40.7 % (41-53); Lymphocytes Absolute Auto 1200 /uL (1100-4500); Lymphocytes Percent Auto 21.5 % (25-40); Mean Corpuscular HGB Conc 34.5 % (30-36); Mean Corpuscular Hemoglobin 32.1 PG (26-34); Monocytes Absolute Auto 600 /uL (0-900); Monocytes Percent Auto 11.3 % (3-14); Neutrophils Absolute Auto 3600 /uL (1500-7000); Neutrophils Percent Auto 64.3 % (50-75); Platelet Count 232 X10^3/uL (150-400); Red Blood Cell Count 4.38 X10^6/uL (4.5-5.9); Red Cell Distribution Width 12.5 % (11.6-14.8); White Blood Cell Count 5.5 X10^3/uL (4.5-11.0)
[2024-06-18 09:25] LABS: Alanine Aminotransferase 21 IU/L (<50); Albumin 4.4 g/dL (3.5-5.0); Albumin Globulin Ratio 1.5 (1.0-2.8); Alkaline Phosphatase 76 U/L (38-126); Aspartate Aminotransferase 28 IU/L (17-59); BUN Creatinine Ratio 17.3 (6-22); Bilirubin Total 0.9 mg/dL (0.2-1.3); Blood Urea Nitrogen 19 mg/dL (9-20); Calcium 9.5 mg/dL (8.4-10.2); Carbon Dioxide 22 mmol/L (22-32); Chloride 101 mmol/L (98-107); Cholesterol 187 mg/dL (140-199); Estimated Glomerular Filt Rate > 60 mL/min (>60); Glucose 124 mg/dL (80-110); HDL Cholesterol 68 mg/dL (40-60); HEMOLYSIS < 15 (0-50); LDL Cholesterol Calculated 105 mg/dL (<100); Potassium 3.9 mmol/L (3.4-5.1); Sodium 133 mmol/L (137-145); Total Protein 7.4 g/dL (6.3-8.2); Triglycerides 70 mg/dL (35-150)
[2024-06-18 09:54] LABS: TSH w/ Reflex to FT4 1.31 uIU/mL (0.47-4.68)
== END ==
PROVIDERS: PCP Family Medicine; Referring Provider Physician Assistant; Visit Provider Physician Assistant
DX: E78.00 Pure hypercholesterolemia, unspecified (principal); I10 Essential (primary) hypertension
CPT/HCPCS: 36415; 80053; 80061; 84443; 85025

== ENCOUNTER → 2024-06-25 12:21 | Outpatient (CLI) | payer MEDICARE, SELFPAY ==
[2024-06-25 13:50] LABS: BUN Creatinine Ratio 17.5 (6-22); Blood Urea Nitrogen 17 mg/dL (9-20); Calcium 9.7 mg/dL (8.4-10.2); Carbon Dioxide 22 mmol/L (22-32); Chloride 102 mmol/L (98-107); Estimated Glomerular Filt Rate > 60 mL/min (>60); Glucose 106 mg/dL (80-110); HEMOLYSIS < 15 (0-50); Sodium 135 mmol/L (137-145)
[2024-06-25 13:53] LABS: Hemoglobin A1C% w Est Avg Glu 5.5 % (4.0-6.0)
[2024-06-25 14:20] LABS: Prostate Specific Antigen Scrn 3.45 ng/mL (0.1-4.0)
== END ==
LOC: LAB 12:22
PROVIDERS: PCP Family Medicine; Referring Provider Family Medicine; Visit Provider Family Medicine
DX: R73.09 Other abnormal glucose (principal); Z12.5 Encounter for screening for malignant neoplasm of prostate
CPT/HCPCS: 36415; 80048; 83036; G0103

== ENCOUNTER → 2024-09-24 08:15 | Outpatient (CLI) | payer MEDICARE, SELFPAY ==
--- NOTE | 2024-09-24 08:17 | DI.RAD.S_ITS ---
PROCEDURE: XR LUMBAR SPINE 2-3V INDICATIONS: right lower back and hip pain - injury x 2 this month TECHNIQUE: 3 views of the lumbar spine were acquired. COMPARISON: None. FINDINGS: Bones: 5 [id number] vertebrae are present. Mild loss of normal lumbar lordosis. Moderate to severe disc space loss at L4-5 and L5-S1 with multilevel anterior osteophytosis. Chronic appearing anterior wedging deformity of the T12 and L1 vertebral bodies has resulted in less than 25% anterior height loss. There is otherwise normal bony alignment. No vertebral body compression fractures. No suspicious bony lesions. Soft tissues: Overlying bowel gas pattern is normal. No suspicious soft tissue calcifications. Atherosclerotic vascular calcifications are noted. IMPRESSION: Multilevel spondylosis and chronic appearing T12 and L1 compression deformities without evidence of acute osseous abnormality. Dictated by: Aftab Richardson M.D. on 09/24/2024 at 17:33 Approved by: Aftab Richardson M.D. on 09/24/2024 at 17:35
--- NOTE | 2024-09-24 08:17 | DI.RAD.S_ITS ---
PROCEDURE: XR HIP W PEL IF DONE SHANNAN MIN 4V INDICATIONS: right lower back and hip pain - injury x 2 this month TECHNIQUE: AP pelvis with lateral view(s) of the bilateral hip(s). COMPARISON: None. FINDINGS: Bones: No fractures or dislocations. Pelvic ring appears intact. Moderate bilateral osteoarthritic degenerative changes of the hips includes joint space narrowing, marginal osteophytosis and acetabular subchondral sclerosis. No suspicious bony lesions. Soft tissues: The visualized bowel gas pattern is normal. No suspicious soft tissue calcifications. IMPRESSION: Moderate bilateral hip osteoarthritic degenerative change without evidence of acute osseous abnormality. Dictated by: Aftab Richardson M.D. on 09/24/2024 at 17:32 Approved by: Aftab Richardson M.D. on 09/24/2024 at 17:33
== END ==
PROVIDERS: PCP Family Medicine; Referring Provider Physician Assistant; Visit Provider Physician Assistant
DX: M47.816 Spondylosis without myelopathy or radiculopathy, lumbar region (principal); S39.92XA Unspecified injury of lower back, initial encounter; M54.50 Low back pain, unspecified; M25.551 Pain in right hip; M43.8X5 Other specified deforming dorsopathies, thoracolumbar region
CPT/HCPCS: 72100; 73522